=== PATIENT | male | born 1950 | race Caucasian/White ===

== ENCOUNTER 2024-04-18 19:52 | Emergency (ER) | payer MEDICARE, OTHER ==
[~2024-04-18] VITALS: Ht 167.6 cm; Wt 81.6 kg
[2024-04-18 20:18] VITALS: BP 173/85; TEMP 76; O2SAT 98
[2024-04-18] MEDS ORDERED: LIDOCAINE 1%-EPI 1:100,000 20 ML VIAL ONE (22:01)
== END 2024-04-19 00:06 | disposition home or self-care (01) ==
LOC: ER 20:04
DX: S01.112A Laceration without foreign body of left eyelid and periocular area, initial encounter (principal); I25.2 Old myocardial infarction; R51.9 Headache, unspecified; Z95.9 Presence of cardiac and vascular implant and graft, unspecified; Z98.0 Intestinal bypass and anastomosis status; W01.0XXA Fall on same level from slipping, tripping and stumbling without subsequent striking against object, initial encounter; Y93.H2 Activity, gardening and landscaping; Y92.096 Garden or yard of other non-institutional residence as the place of occurrence of the external cause; Y99.8 Other external cause status
CPT/HCPCS: 12013; 70450; 99284; J3490